=== PATIENT | male | born 1980 | race Caucasian/White ===

== ENCOUNTER 2022-11-10 07:57 | Day surgery (SDC) | payer OTHER ==
[~2022-11-10] VITALS: Ht 180.3 cm; Wt 88.3 kg
[2022-11-10] VITALS (9 sets, daily range): BP systolic 120–156; BP diastolic 80–95
[~2022-11-10 07:57] MED LIST: HYDR-3972 PO; HYDR12.55 PO; ceFAZolin inj. 2,000 MG in dextrose 5%-water 100 ML IV ONE; famotidine 20mg tablet PO ONE; ringers solution, lacted 1,000 ML IV SCH
[2022-11-10] MEDS ORDERED: hydrALAZINE 20mg/ml inj. IV PRN (08:40)
[2022-11-10] MEDS ORDERED: fentaNYL/PF 50MCG/1 ML 2ML syringe IV PRN ×2 (08:40)
[2022-11-10] MEDS ORDERED: morphine 4 MG/ML inj SYRINge IV PRN (08:40)
[2022-11-10] MEDS ORDERED: ringers solution, lacted 1,000 ML IV SCH (08:40)
[2022-11-10] MEDS ORDERED: labetalol 20mg/4ml (5mg/ml) syringe IV PRN (08:40)
[2022-11-10] MEDS ORDERED: morphine 2 MG/ML inj. syringe IV PRN (08:40)
[2022-11-10] MEDS ORDERED: ondansetron/PF 4mg/2ml inj IV PRN (08:40)
[2022-11-10 09:22] LABS: BASOPHILS % (AUTO) 0.4 % (0-1); EOSINOPHILS # (AUTO) 0.1 X10'3 (0-0.9); EOSINOPHILS % (AUTO) 1.8 % (0-6); LYMPHOCYTES # (AUTO) 1.2 X10'3 (1.1-4.8); LYMPHOCYTES % (AUTO) 26.1 % (21-51); MEAN CORPUSCULAR HEMOGLOBIN 29.1 PG (27.0-31.0); MEAN CORPUSCULAR HGB CONC 33.7 g/dL (33.0-36.5); MEAN CORPUSCULAR VOLUME 86.3 FL (78-98); MEAN PLATELET VOLUME 7.9 FL (7.4-10.4); MONOCYTES # (AUTO) 0.4 X10'3 (0-0.9); NEUTROPHILS # (AUTO) 2.9 X10'3 (1.8-7.7); NEUTROPHILS % (AUTO) 63.7 % (42-75); PRE OP HEMOGLOBIN 14.9 g/dL (14.0-17.9); PRE OP PLATELET COUNT 196 X10'3 (140-440); RED CELL DISTRIBUTION WIDTH 13.7 % (11.5-14.5)
[2022-11-10 09:40] LABS: ALBUMIN 3.7 G/DL (3.4-5.0); ALBUMIN/GLOBULIN RATIO 1.1 (1.1-1.5); ALKALINE PHOSPHATASE 67 IU/L (46-116); BLOOD UREA NITROGEN 15 MG/DL (7-18); BUN/CREATININE RATIO 17.2 (5.4-32.0); CALCIUM 8.9 MG/DL (8.5-10.1); CHLORIDE 105 MMOL/L (99-107); CREATININE 0.87 MG/DL (0.60-1.10); PRE OP ALT 28 U/L (30-65); PRE OP ANION GAP 5 (8-16); PRE OP AST 20 U/L (10-37); PRE OP BILIRUB, TOTAL 0.4 MG/DL (0.0-1.0); PRE OP GLUCOSE 99 MG/DL (70-104); PRE OP SODIUM 140 MMOL/L (135-145); TOTAL CARBON DIOXIDE 29.6 MMOL/L (24-32); TOTAL PROTEIN 7.1 G/DL (6.4-8.2); eGFR > 90 ML/MIN
[2022-11-10] MEDS ORDERED: BUPIVAcaine 0.5% inj/PF 30 ML ONE (10:58)
[2022-11-10] MEDS ORDERED: LIDOcaine 1% 30ml preserv. free vial ONE (11:23)
[2022-11-10] MEDS ORDERED: neostigmine methylsulfate 1 MG/ML 10ml vial ONE (11:29)
[2022-11-10] MEDS ORDERED: glycopyrrolate 0.2mg/ml inj ONE (11:29)
[2022-11-10] MEDS ORDERED: sevoflurane 250ml liquid IH ONE (11:29)
[2022-11-10] MEDS ORDERED: rocuronium 10mg/ml inj IV ONE ×2 (11:29→11:48)
[2022-11-10] MEDS ORDERED: fentaNYL/PF 50MCG/1 ML 2ML syringe ONE ×2 (11:41→12:43)
[2022-11-10] MEDS ORDERED: midazolam 1 mg/ML 2ml injection ONE (11:41)
[2022-11-10] MEDS ORDERED: dexamethasone sod phosphate 4mg/ml inj. ONE (11:49)
[2022-11-10] MEDS ORDERED: LIDOcaine 1%/PF 5ML 10 MG/ML VIAL ONE (11:50)
[2022-11-10] MEDS ORDERED: propofol inj 20 ML IV ONE (11:50)
[2022-11-10] MEDS ORDERED: ondansetron/PF 4mg/2ml inj ONE (11:51)
[2022-11-10] MEDS ORDERED: BUPIVAcaine 0.5% inj/PF 30 ml vial IJ ONE (12:16)
[2022-11-10] MEDS ORDERED: LIDOcaine 1% 30ml preserv. free vial IJ ONE (12:18)
[2022-11-10] MEDS ORDERED: ketorolac trometh. 30mg/ml inj. ONE (12:24)
[2022-11-10] MEDS ORDERED: HYDROcodone/acetaminophen 5mg/325mg tablet PO PRN (12:50)
[2022-11-10] MEDS ORDERED: HYDROcodone/acetaminophen 10/325mg tab PO PRN (12:55)
--- NOTE | 2022-11-10 12:55 | NUR ---
Received from OR via [facility] IN STABLE CONDITION , accompanied by Anesthesiologist and HAIR WORKER report given by Anesthesikrzysztof AND HAIR WORKER. Addendum: 11/10/22 at 1320 by Sherry Suggs RN Amended: Links added.
[2022-11-10] MEDS ORDERED: meperidine/PF 25mg/ml syringe IV ONE (13:45)
--- NOTE | 2022-11-10 14:40 | NUR ---
PATIENT DISCHARGED FROM PACU IN STABLE CONDITION AFTER WRITTEN AND VERBAL DISCHARGE INSTRUCTIONS GIVEN. PATIENT AND GAVE VERBAL UNDERSTANDING OF INSTRUCTIONS GIVEN. PATIENT LEFT FACILITY VIA WHEELCHAIR WITH RN. Addendum: 11/10/22 at 1444 by Sherry Suggs RN Amended: Links added.
== END 2022-11-10 14:40 | disposition home or self-care (01) ==
LOC: PAS 07:57
PROVIDERS: ATTEND Surgery
DX: K40.20 Bilateral inguinal hernia, without obstruction or gangrene, not specified as recurrent (principal); D17.6 Benign lipomatous neoplasm of spermatic cord; I10 Essential (primary) hypertension; Z98.890 Other specified postprocedural states; F17.220 Nicotine dependence, chewing tobacco, uncomplicated; Z79.899 Other long term (current) drug therapy; Z83.3 Family history of diabetes mellitus; Z82.49 Family history of ischemic heart disease and other diseases of the circulatory system
CPT/HCPCS: 36415; 49650; 80053; 82948; 85025; 93005; C1781; J0690; J1100; J1885; J2175; J2250; J2270; J2405; J2704; J2710; J3010; J3490; J7030; J7060; J7120; S0020; S2900; Z7506; Z7508; Z7512; A4215; A4618